=== PATIENT | female | born 1945 | race Caucasian/White ===

== ENCOUNTER → 2016-08-27 07:37 | Outpatient (CLI) | payer MEDICARE, OTHER | END | disposition home or self-care (01) | LOC: D.RT 07:37 | DX: J45.909 Unspecified asthma, uncomplicated (principal) ==

== ENCOUNTER → 2016-10-30 12:31 | Outpatient (CLI) | payer MEDICARE, OTHER | END | disposition home or self-care (01) | LOC: D.RAD 12:31 | DX: T17.928A Food in respiratory tract, part unspecified causing other injury, initial encounter (principal) ==

== ENCOUNTER → 2016-11-17 10:13 | Outpatient (CLI) | payer MEDICARE, OTHER | END | disposition home or self-care (01) | LOC: D.CT 10:13 | DX: J84.9 Interstitial pulmonary disease, unspecified (principal) ==

== ENCOUNTER 2016-11-19 17:07 | Outpatient (CLI) | payer MEDICARE, OTHER | END 2016-11-19 17:31 | LOC: D.MAMMO 17:07 | DX: Z12.31 Encounter for screening mammogram for malignant neoplasm of breast (principal) ==